=== PATIENT | female | born 1965 | race Caucasian/White ===

== ENCOUNTER → 2023-08-12 10:58 | Outpatient (REF) | payer BC, SELFPAY | LOC: HWWDC 10:58 | PROVIDERS: ATTENDING PHYSICIAN Obstetrics & Gynecology Gynecology; FAMILY PHYSICIAN Physician Assistant Medical | DX: Z12.31 Encounter for screening mammogram for malignant neoplasm of breast (principal) | CPT/HCPCS: 77063; 77067 ==

== ENCOUNTER → 2024-09-07 11:07 | Outpatient (REF) | payer BC, SELFPAY | LOC: HWWDC 11:07 | PROVIDERS: ATTENDING PHYSICIAN Obstetrics & Gynecology Gynecology; FAMILY PHYSICIAN Physician Assistant Medical | DX: Z12.31 Encounter for screening mammogram for malignant neoplasm of breast (principal) | CPT/HCPCS: 77063; 77067 ==

== ENCOUNTER → 2025-01-29 15:46 | Outpatient (REF) | payer BC, SELFPAY | LOC: CLAB 15:46 | PROVIDERS: ATTENDING PHYSICIAN Orthopaedic Surgery | DX: R22.30 Localized swelling, mass and lump, unspecified upper limb (principal) | CPT/HCPCS: 88304 ==